=== PATIENT | male | born 1980 | race African-American/Black ===

== ENCOUNTER 2018-03-20 20:33 | Emergency (ER) | payer SELFPAY ==
[2018-03-20] MEDS ORDERED: Ibuprofen 800 MG TAB ONE (20:54)
--- NOTE | 2018-03-20 21:20 | RAD ---
THREE VIEWS RIGHT WRIST: 03/20/18 HISTORY: Injury to right wrist after a fall off a ladder this morning. FINDINGS: There is a fracture involving the lateral aspect of the distal left radius with intra-articular exten miguel of the fracture with intra-articular gap measuring approximately 1 to 2 mm with suggestion of ve ry slight step-off. The fracture fragment is slightly displaced laterally. There is a corticated osse ous density adjacent to the ulnar styloid process, likely related to remote avulsion and reverses acc essory center of ossification. Sclerotic density is seen in the lunate bone likely related to a bone island. Subcutaneous soft tissue swelling is seen about the wrist, greatest adjacent to the distal ra dius. IMPRESSION: Fracture involving the lateral aspect distal right radius with intra-articular extension of the fract ure and slight intra-articular gap and step-off present. POS: LAWANDA
== END 2018-03-20 21:25 | disposition home or self-care (01) ==
LOC: NAV ERS 20:33
DX: S52.501A Unspecified fracture of the lower end of right radius, initial encounter for closed fracture (principal); F17.210 Nicotine dependence, cigarettes, uncomplicated; W11.XXXA Fall on and from ladder, initial encounter
CPT/HCPCS: 29125

== ENCOUNTER 2021-08-16 15:51 | Emergency (ER) | payer OTHER, SELFPAY ==
[2021-08-16] MEDS ORDERED: Ibuprofen 800 MG TAB ONE (16:25)
== END 2021-08-16 16:35 | disposition home or self-care (01) ==
LOC: NAV ERS 15:51
DX: S39.012A Strain of muscle, fascia and tendon of lower back, initial encounter (principal); S93.402A Sprain of unspecified ligament of left ankle, initial encounter; S93.401A Sprain of unspecified ligament of right ankle, initial encounter; V43.62XA Car passenger injured in collision with other type car in traffic accident, initial encounter; F17.210 Nicotine dependence, cigarettes, uncomplicated
CPT/HCPCS: 99283

== ENCOUNTER 2021-09-09 21:09 | Emergency (ER) | payer OTHER, SELFPAY | END 2021-09-09 23:13 | disposition home or self-care (01) | LOC: NAV ERS 21:09 | DX: S43.402A Unspecified sprain of left shoulder joint, initial encounter (principal); F17.290 Nicotine dependence, other tobacco product, uncomplicated; V43.92XA Unspecified car occupant injured in collision with other type car in traffic accident, initial encounter ==